=== PATIENT | male | born 1980 ===

== ENCOUNTER 2025-04-23 12:46 | Outpatient (AMB) | payer OTHER, SELFPAY ==
--- NOTE | 2025-04-23 12:55 | A.PHYSOV ---
Vital Signs 04/23/25 12:58 Height 5 ft 10 in Weight 240 lb BMI 34.4 Intake Visit Reasons: F/U AFTER INJECTION 03/21/2025 Intake Note: Patient is a 44 year old male in office for follow up visit after Left L5 Transforaminal Epidural Injection. Application Packaging Specialist Required: No Allergies erythromycin base Allergy (Unknown, Verified 04/23/25 12:56) unknown HPI Comments Details: Mr. Fairchild is a 44-year-old male seen in evaluation today for lumbar radiculitis. Patient underwent left L5 TF be with 100% reduction of his lower extremity pain and 70% reduction of his back pain. The injection incurred on 03/21/2025. He is able to stand for longer periods of time and ambulate longer distances. Overall he is very happy with his RESULTS. Procedure: Left L5 TFESI 03/21/2025 70% reduction of his pain PFSH Social History Alcohol intake: current Alcohol intake frequency: does not drink Patient Tobacco Use Status: Never used Tobacco Use of substances other than those prescribed or required for medical reasons: No Review of Systems Narrative Low back pain with radiculopathy. No incontinence, saddle anesthesia urinary retention. Physical Exam Exam Exam: Lumbar Spine: Examination of his lumbar spine, there is no visible swelling or deformity. He is less tender to the left lumbar facets. He is otherwise nontender. Full range of motion of the lumbar spine. Special Tests: Lhermittes sign was negative Heel Toe walk is normal Left straight leg raise: Negative Right straight leg raise: Negative Special tests Bernard test is negative Ganslen's test is negative SI Joint compression test negative Alex test negative Piriformis stretch is negative Lower Extremities: Full range of motion bilateral lower extremities. No calf pain or edema. Neuro: Sensation: Intact to lower extremities bilaterally Strength L2 (Psoas): 5/5 on the left and 5/5 on the right. L3 (Quads): 5/5 on the left and 5/5 on the right. L4 (Ant tibialis): 5/5 on the left and 5/5 on the right. L5 (EHL) 5/5 on the left and 5/5 on the right. S1 (Gastroc): 5/5 on the left and 5/5 on the right. DTR L4: (Patellar) Left 2 Right 2 S1: (Achilles) Left 2 Right 2 Babinski Downgoing No pathologic clonus. No involuntary movement. Vital Signs: BMI result Body Mass Index 34.4 Assessment & Plan Assessment & Plan (1) Lumbar radiculopathy: Code(s): M54.16 - Radiculopathy, lumbar region Category: Medical (2) Spondylosis of lumbar spine: Code(s): M47.816 - Spondylosis without myelopathy or radiculopathy, lumbar region Category: Medical Plan Mr. Tejeda is a 44-year-old male seen in evaluation today for lumbar radiculitis to the left lower extremity. Patient responded very well to left L5 TF knee. He will continue his home exercise plan and medications as prescribed. Follow-up with our office as needed. Thank you for allowing me to participate in the care of your patient. Coding Level of Care Code Tele Est Pt Level 3 (64590) Diagnoses Lumbar radiculopathy M54.16 Spondylosis of lumbar spine M47.816
[2025-04-23 12:58] VITALS: BMI 34.4
== END 2025-04-23 13:38 | disposition home or self-care (01) ==
LOC: HO.HPHYS 12:46
PROVIDERS: PCP Student in an Organized Health Care Education/Training Program; Visit Provider Physician Assistant
DX: M54.16 Radiculopathy, lumbar region (principal); M47.816 Spondylosis without myelopathy or radiculopathy, lumbar region
CPT/HCPCS: 99213